=== PATIENT | female | born 1985 | race African-American/Black ===

== ENCOUNTER → 2020-09-14 13:39 | Outpatient (BNVA) | payer OTHER, SELFPAY | PROVIDERS: PCP Internal Medicine; Visit Provider Advanced Practice Midwife | DX: Z76.89 Persons encountering health services in other specified circumstances (principal) ==

== ENCOUNTER 2024-02-14 14:34 | Outpatient (REF) | payer OTHER, SELFPAY | END 2024-02-14 14:35 | disposition home or self-care (01) | LOC: HO.LAB 14:34 | PROVIDERS: Visit Provider Advanced Practice Midwife | DX: Z13.89 Encounter for screening for other disorder (principal) ==

== ENCOUNTER 2024-02-14 14:34 | Outpatient (AMB) | payer OTHER, SELFPAY ==
[2024-02-14 14:35] VITALS: BP 100/62; BMI 25.7
--- NOTE | 2024-02-14 14:35 | MHC.OFFVIS ---
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 She reminded this practitioner that I delivered her 1st child when she was 12 in 1998. She is doing well right now she feels healthy she is open to if it happens complicated OB history and that she had some pre term concerns with her 1st baby but delivered at term 2nd was fine and then she had a in 2007 that was a so the 0 ectopic and that needed emergent management at [facility] and she was transferred from [place] to [facility] for that. She subsequently has had some TAB but is open now. She is in good health she does feel she gets very heavy crampy periods that are mainly just clots and she would like to check out to see if she has fibroids she also just yesterday had a breast biopsy and a solid mass done on her right breast at [facility] breast [facility]. She is open to checking for infection while I do the pelvic exam she believes she had an abnormal Pap smear years ago as well she has not interested in STD testing with blood work as she just recently had a full battery of blood work with her primary care provider and has no concerns. Her periods while heavy and clotty are regular. PENDING SALE TO [facility] Medical History (Updated 02/14/24 @ 15:49 by Enriqueta Jordan CNM) Ectopic Migraine with aura Surgical History Status post embolization of uterine artery H/O breast biopsy Family History (Updated 02/14/24 @ 15:51 by Enriqueta Jordan CNM) Mother History of breast cancer, Onset Age: 50 Sister History of breast cancer, Onset Age: 30 Social History Alcohol intake: current Sexual orientation: Straight/Heterosexual Female Reproductive History Menstrual Age of Menarche: 9 Duration of menses: 3-5 days Date of last menstrual period: 01/22/24 control method: none Total pregnancies: 8 Full term: 2 History of abnormal pap smear: Yes (unsure date) Physical Exam Vital Signs: Last Vital Signs BP 100/62 02/14/24 14:35 BMI result Body Mass Index 25.7 Const General: healthy appearing, comfortable, no acute distress, well developed and alert Nutritional Appearance: average body habitus Orientation/consciousness: patient oriented x3 Limitations: no limitations HEENT Head: Yes normocephalic Neck Neck: Yes normal visual inspection Chest Other: She has two Steri-Strips marking where her breast biopsy was done yesterday at [facility] at 0700 Chest palpation & inspection: normal inspection of the chest Breast/axilla inspection: normal inspection of the breasts and normal inspection of the axillae Breast/axilla palpation: normal palpation of the breasts and normal palpation of the axillae Resp Effort & Inspection: normal respiratory effort GI Inspection: Yes normal to inspection, No Abdominal wall edema and No distended Palpation (GI): Soft to palpation and nontender Other: External exam within normal limits vagina pink and moist cervix multiparous pink smooth normal appearing normal nabothian cysts uterus is small retroverted mobile nontender adnexa nontender and her ovaries were actually easily palpable by her and I. Good tone with Kegel. General: Yes bladder normal to palpation External Female Exam: normal external appearance and normal appearance of the urethra Speculum Exam - Vagina: normal appearance of the vagina, normal palpation and normal vaginal discharge Speculum Exam - Cervix: normal appearance of the cervix, normal palpation and nontender Bimanual exam- vagina & uterus: normal bimanual exam, normal palpation, uterine size normal, bladder normal to palpation, consistency normal, normal palpation, uterine mobility normal, uterine shape normal, No Cervical tenderness present, non-tender and no cervical motion tenderness Bimanual Exam- Adnexa, other: normal adnexae, no masses, normal and No adnexal tenderness Neuro General: patient oriented x3 Assessment & Plan Assessment & Plan (1) Family history of breast cancer in first degree relative: Code(s): Z80.3 - Family history of malignant neoplasm of breast Category: Medical (2) Well woman exam with routine gynecological exam: Code(s): Z01.419 - Encounter for gynecological examination (general) (routine) without abnormal findings Category: Medical (3) Hx of ectopic : Comment: around 2007, was in her cervix, transferred and emergently managed at [facility]. Code(s): Z87.59 - Personal history of other complications of , childbirth and the puerperium Category: Medical (4) Hx of abnormal cervical Pap smear: Code(s): Z87.42 - Personal history of other diseases of the female genital tract Category: Medical (5) Pelvic pain: Code(s): R10.2 - Pelvic and perineal pain Category: Medical (6) Menorrhagia with regular cycle: Comment: Clotty menses Code(s): N92.0 - Excessive and frequent menstruation with regular cycle Category: Medical (7) Breast mass: Comment: Patient gets evaluations at [facility] and just had breast biopsy right breast 02/13/2024 awaiting results Code(s): N63.0 - Unspecified lump in unspecified breast Category: Medical Plan Reviewed her history in detail she reminded me that I delivered her 1st child and she was 12 at 1998. She was having some signs of pre term labor and she says we told her to be on bedrest at the time her 2nd was not complicated. Then in 2007 she had an ectopic that was in her cervix and we transferred her emergently to [facility] where she was managed with injection of what she remembers as phone into her fallopian tubes but it may have been the uterine artery embolization to manage that afterwards she got weekly shots of methotrexate for a while she would some T8 B's for subsequent but she welcome now if it happened she is also considering going back to school and she is considering studying nursing she travels a lot and is also considering options in that world. She has in a good stable relationship and would you good time her other children are grown in their 20s and she will so has a grandchild already she is healthy and taking care of herself and life is good Additionally she had a breast biopsy for small solid mass that was noted on exam and mammogram yesterday at [facility] she has expecting the results for that biopsy within a week. Because of her concerned that she might have fibroids because of her very clotty menses I am ordering a pelvic ultrasound to assess additionally she gets occasional uterine or pelvic cramping possibility of a UTI was explored and a clean-catch urine has been sent if it is contaminated I have asked her to explore things further with her primary care provider but otherwise we will wait the pelvic ultrasound to see if there and findings there as well. She has on the portal so she can get the results of the urine when it is ready as well. Orders: Orders CT NG by PCR Today Z11.3 - Encounter for screening for infections with a predominantly sexual mode of transmission Bacterial Vaginosis Panel Today N89.8 - Other specified noninflammatory disorders of vagina US pelvic and transvaginal Today N92.0 - Excessive and frequent menstruation with regular cycle, R10.2 - Pelvic and perineal pain, Z01.419 - Encounter for gynecological examination (general) (routine) without abnormal findings, Z80.3 - Family history of malignant neoplasm of breast, Z87.42 - Personal history of other diseases of the female genital tract, Z87.59 - Personal history of other complications of , childbirth and the puerperium Pap Smear Today Z01.419 - Encounter for gynecological examination (general) (routine) without abnormal findings Urine Culture Today R10.2 - Pelvic and perineal pain Coding Level of Care Code New Pt Prev Care 18-39yr([id number] Diagnoses Family history of breast cancer in first degree relative Z80.3 Well woman exam with routine gynecological exam Z01.419 Hx of ectopic Z87.59 Hx of abnormal cervical Pap smear Z87.42 Pelvic pain R10.2 Menorrhagia with regular cycle N92.0 Breast mass N63.0
== END 2024-02-14 15:37 | disposition home or self-care (01) ==
LOC: HO.HWSM 14:34
PROVIDERS: Visit Provider Advanced Practice Midwife
DX: Z01.419 Encounter for gynecological examination (general) (routine) without abnormal findings (principal); Z80.3 Family history of malignant neoplasm of breast; Z87.59 Personal history of other complications of pregnancy, childbirth and the puerperium; Z87.42 Personal history of other diseases of the female genital tract; R10.2 Pelvic and perineal pain; N92.0 Excessive and frequent menstruation with regular cycle; N63.0 Unspecified lump in unspecified breast
CPT/HCPCS: 99385

== ENCOUNTER 2024-02-14 15:30 | Outpatient (REF) | payer OTHER, SELFPAY ==
[2024-02-15 01:32] LABS: CT PCR NOT DETECTED (Not Detect.); NG PCR NOT DETECTED (Not Detect.)
[2024-02-15 11:45] LABS: Bacterial Vaginosis PCR POSITIVE (Negative); Candida Group PCR NOT DETECTED (Not Detect); Candida glab krusei PCR NOT DETECTED (Not Detect); Trichomonas vaginalis PCR NOT DETECTED (Not Detect)
[2024-02-19 07:23] LABS: HPV mRNA E6/E7 Not Detected (Not Detected)
== END 2024-02-14 15:31 | disposition home or self-care (01) ==
LOC: HO.LNP 15:30
PROVIDERS: Visit Provider Advanced Practice Midwife
DX: R10.2 Pelvic and perineal pain (principal); Z11.3 Encounter for screening for infections with a predominantly sexual mode of transmission; N89.8 Other specified noninflammatory disorders of vagina
CPT/HCPCS: 0352U; 87086; 87491; 87591; 87624; 88175

== ENCOUNTER 2024-02-25 13:25 | Outpatient (REF) | payer OTHER, SELFPAY ==
--- NOTE | ~2024-02-25 | US_ITS ---
EXAMINATION: US PELVIS CLINICAL INFORMATION: Pelvic and perineal pain, excessive and frequent menstruation with irregular cycles. Last menstrual period 02/21/2024. Embolization of uterine artery. A midline pelvic pain. COMPARISON: None available. TECHNIQUE: Ultrasound of the pelvis is performed using both transabdominal and transvaginal transducers along with Doppler. Transvaginal imaging is performed due to inadequate visualization transabdominally. FINDINGS: The uterus is retroflexed and measures 9.5 x 5.0 x 5.6 cm. Endometrial thickness is 4 mm. No free fluid. Nabothian cysts in the cervix. Right ovary measures 3.9 x 2.0 x 1.7 cm, volume 7.0 mL. Right ovary is grossly unremarkable, although visualization is somewhat limited due to bowel gas. Left ovary measures 3.9 x 2.1 x 2.7 cm, volume 11.6 mL. Multiple left ovarian follicles are likely physiologic cysts. There is no specific indication for additional imaging. Left ovarian 2.1 x 1.6 x 2.1 cm complex cyst with thick ruelas, multiple thin and thick septations and complex internal echoes. US/US pelvic and transvaginal IMPRESSION: 1. Endometrial thickness is 4 mm. 2. Left ovarian 2.1 cm complex cyst with thick ruelas, multiple thin and thick septations and complex internal echoes. Recommend follow up ultrasound in 6-8 weeks.
== END 2024-02-25 13:26 | disposition home or self-care (01) ==
LOC: HO.US 13:25
PROVIDERS: PCP Internal Medicine; Visit Provider Advanced Practice Midwife
DX: R10.2 Pelvic and perineal pain (principal); N92.0 Excessive and frequent menstruation with regular cycle; Z87.42 Personal history of other diseases of the female genital tract; Z87.59 Personal history of other complications of pregnancy, childbirth and the puerperium
CPT/HCPCS: 76830; 76856

== ENCOUNTER 2024-03-11 14:33 | Outpatient (REF) | payer OTHER, SELFPAY ==
[2024-03-12 07:12] LABS: CT PCR NOT DETECTED (Not Detect.); NG PCR NOT DETECTED (Not Detect.)
[2024-03-12 11:19] LABS: Bacterial Vaginosis PCR NEGATIVE (Negative); Candida Group PCR DETECTED (Not Detect); Candida glab krusei PCR NOT DETECTED (Not Detect); Trichomonas vaginalis PCR NOT DETECTED (Not Detect)
== END 2024-03-11 14:34 | disposition home or self-care (01) ==
LOC: HO.LNP 14:33
PROVIDERS: PCP Internal Medicine; Visit Provider Obstetrics & Gynecology
DX: N76.0 Acute vaginitis (principal)
CPT/HCPCS: 0352U; 87491; 87591

== ENCOUNTER 2024-03-11 14:34 | Outpatient (AMB) | payer OTHER, SELFPAY ==
[2024-03-11 14:34] VITALS: BMI 25.6
--- NOTE | 2024-03-11 14:34 | A.OFFVIS_ITS ---
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 Required: No Information Interpreted: non-clinical & clinical Digital Content Manager: Digital Content Manager Present (Rehana Gruber KELSEY) Accompanied by: Self / Same As Patient Allergies Sulfa (Sulfonamide Antibiotics) Allergy (Unknown, Verified 03/11/24 14:34) sister got Gwyn-Federico syndrome Is last menstrual period known: Yes Last menstrual period: 02/21/24 HPI Comments Details: Presenting complaining of vulvovaginal dryness and irritation, no associated vaginal discharge or foul odor [facility], [facility] Medical History Ectopic Migraine with aura Surgical History Status post embolization of uterine artery H/O breast biopsy Family History Mother History of breast cancer, Onset Age: 50 Sister History of breast cancer, Onset Age: 30 Social History Alcohol intake: current Sexual orientation: Straight/Heterosexual Female Reproductive History Menstrual Age of Menarche: 9 Date of last menstrual period: 02/21/24 Review of Systems Const All systems reviewed & are unremarkable except as noted in HPI and below Physical Exam Vital Signs: BMI result Body Mass Index 25.6 General: Yes no CVA tenderness External Female Exam: normal external appearance and normal appearance of the urethra Speculum Exam - Vagina: normal appearance of the vagina, normal palpation, no l esions and no masses Speculum Exam - Cervix: normal appearance of the cervix, normal palpation, no lesions, no masses and nontender Bimanual exam- vagina & uterus: normal bimanual exam, normal palpation, uterine size normal, normal palpation, uterine shape normal, No Cervical tenderness present and non-tender Bimanual Exam- Adnexa, other: normal adnexae Back/Spine/Pelvis Back: no CVA tenderness Assessment & Plan Assessment & Plan (1) Vulvovaginitis: Code(s): N76.0 - Acute vaginitis Category: Medical Plan: GC/CT, Bacterial Vaginosis panel taken, Terazol 0.8% q.h.s. for 3 days was sent to the patient's pharmacy. The patient was instructed to call if symptoms don't improve in 48 hours. Medications: New terconazole 0.8% 1 appful vaginal BEDTIME 3 days 20 grams 0RF Coding Level of Care Code Est Pt Level 3 (50305) Diagnoses Vulvovaginitis N76.0
== END 2024-03-11 14:51 | disposition home or self-care (01) ==
PROVIDERS: PCP Internal Medicine; Visit Provider Obstetrics & Gynecology
DX: N76.0 Acute vaginitis (principal)
CPT/HCPCS: 99213

== ENCOUNTER 2024-03-31 11:14 | Outpatient (AMB) | payer OTHER, SELFPAY ==
--- NOTE | 2024-03-31 11:14 | MHC.OFFVIS ---
Intake Visit Reasons: TV US follow up Allergies Sulfa (Sulfonamide Antibiotics) Allergy (Unknown, Verified 03/31/24 11:14) sister got Gwyn-Federico syndrome Medication List - Last Reconciled 03/31/24 by Enriqueta Jordan CNM fluconazole 150 mg PO ONCE 1 day Is last menstrual period known: Yes Last menstrual period: 03/22/24 HPI HPI TV US follow up: Details: This is a tele visit to review patient's ultrasound she has other concerns as well she has been trying to get for the last couple of years and is wondering presence of this ovarian cyst is preventing her. She is 38 years old she has a complicated OB history including an ectopic that was in her cervix years ago. She also was treated for bacterial vaginosis and then a month later had symptoms of yeast infection and was seen and evaluated and treated with terconazole and she still felt some symptoms of dryness and she was treated with Diflucan but she still does not feel like she is back to herself. Her last menstrual periods started on the 4th of this month so she is 9 days into her cycle and she just recently finished with her menses. She normally is not aware of when she is ovulating. [facility] Medical History Ectopic Migraine with aura Surgical History Status post embolization of uterine artery H/O breast biopsy Family History Mother History of breast cancer, Onset Age: 50 Sister History of breast cancer, Onset Age: 30 Social History Alcohol intake: current Sexual orientation: Straight/Heterosexual Female Reproductive History Menstrual Age of Menarche: 9 Duration of menses: 3-5 days Date of last menstrual period: 03/22/24 control method: none Total pregnancies: 8 Full term: 2 Date of last pap smear: 09/18/17 (neg.) Telehealth Telehealth Telehealth Platform: Telephone Location of provider rendering services: practice address Location of patient: address on file Patient Identification confirmed using: Name, : Yes Telehealth method: voice only Patient verbally consented to treatment: Yes Patient verbally consented to billing insurance company: Yes Patient informed of any privacy concerns related to visit: Yes Minutes spent on Phone/Video with Pt.: 14 (7 cr/14 speaking w pt/6 charting=27) Results Reviewed Results Reviewed: Patient: Kassandra Germain MR#: [id number] : 1985 Acct:[id number] Age/Sex: 38 / F ADM Date: 02/25/24 Loc: HO.US Attending Dr: Enriqueta Jordan CNM Ordering Physician: Enriqueta Jrodan CNM Date of Service: 02/25/24 Procedure(s): US pelvic and transvaginal Accession Number(s): [id number] cc: Enriqueta Jordan CNM; DONALD YING MD~ EXAMINATION: US PELVIS CLINICAL INFORMATION: Pelvic and perineal pain, excessive and frequent menstruation with irregular cycles. Last menstrual period 02/21/2024. Embolization of uterine artery. A midline pelvic pain. COMPARISON: None available. TECHNIQUE: Ultrasound of the pelvis is performed using both transabdominal and transvaginal transducers along with Doppler. Transvaginal imaging is performed due to inadequate visualization transabdominally. FINDINGS: The uterus is retroflexed and measures 9.5 x 5.0 x 5.6 cm. Endometrial thickness is 4 mm. No free fluid. Nabothian cysts in the cervix. Right ovary measures 3.9 x 2.0 x 1.7 cm, volume 7.0 mL. Right ovary is grossly unremarkable, although visualization is somewhat limited due to bowel gas. Left ovary measures 3.9 x 2.1 x 2.7 cm, volume 11.6 mL. Multiple left ovarian follicles are likely physiologic cysts. There is no specific indication for additional imaging. Left ovarian 2.1 x 1.6 x 2.1 cm complex cyst with thick ruelas, multiple thin and thick septations and complex internal echoes. US/US pelvic and transvaginal IMPRESSION: 1. Endometrial thickness is 4 mm. 2. Left ovarian 2.1 cm complex cyst with thick ruelas, multiple thin and thick septations and complex internal echoes. Recommend follow up ultrasound in 6-8 weeks. Dictated By: Francine Sahu MD Signed By: <Electronically signed by Francine Sahu MD in OV> 03/17/24 0514 Pap smear was done 02/14/2024 it was sent to [facility]. There is a copy but it is not in pathology, Pap is negative with negative HPV. See also test for bacterial vaginosis in January and Kaelyn in February patient treated for both. Assessment & Plan Assessment & Plan (1) Ovarian cyst, complex: Code(s): N83.299 - Other ovarian cyst, unspecified side Category: Medical (2) Hx of abnormal cervical Pap smear: Comment: 02/14/2024 Pap appears it maybe negative with negative HPV however 03/05 sections are still pending from [facility].; final result of 02/13 pap is neg w neg HPV. Code(s): Z87.42 - Personal history of other diseases of the female genital tract Category: Medical (3) Menorrhagia with regular cycle: Comment: Clotty menses Code(s): N92.0 - Excessive and frequent menstruation with regular cycle Category: Medical (4) Patient desires : Comment: Patient desires says she has been trying for the last 2 years. Recommend patient seek reproductive assistance at [facility] and bring any records of cycles and ovulation. Code(s): Z31.9 - Encounter for procreative management, unspecified Category: Medical Plan I reviewed her ultrasound with her and the plan for repeat ultrasound I can not say if this ovarian cyst would have any effect at all on her attempts to get we will follow the next ultrasound and see about the results and if there is anything concerning she would be referred. In terms of the bacterial vaginosis followed by yeast and her not feeling completely comfortable get I would recommend that she simply not use anything other than clear water for the moment and make sure she is not wearing any tight clothing and let her vagina and body get back to normal In terms of seeking since she is 38 years old and she says she has been trying for a couple of years and she has been involved this partner for about 4 5 years. I would recommend that she not waste anymore time and seek consultation at [facility] and bring with her her records of her menses and any evidence she has a of ovulation. She normally can not tell but I recommend that she go out now and get an ovulation predictor kit and start using it with this cycle as she should probably be had any ovulation any day now. We will see her after the next ultrasound to review the results. Coding Level of Care Code Tele Est Pt Level 3 (95861) Diagnoses Ovarian cyst, complex N83.299 Hx of abnormal cervical Pap smear Z87.42 Menorrhagia with regular cycle N92.0 Patient desires Z31.9 Time Spent (min) 27
== END 2024-03-31 12:45 | disposition home or self-care (01) ==
LOC: HO.HWSM 11:14
PROVIDERS: PCP Internal Medicine; Visit Provider Advanced Practice Midwife
DX: N83.299 Other ovarian cyst, unspecified side (principal); Z87.42 Personal history of other diseases of the female genital tract; N92.0 Excessive and frequent menstruation with regular cycle; Z31.9 Encounter for procreative management, unspecified
CPT/HCPCS: 99213

== ENCOUNTER → 2024-03-31 11:14 | Outpatient (BNVA) | payer OTHER, SELFPAY | PROVIDERS: PCP Internal Medicine; Visit Provider Advanced Practice Midwife ==

== ENCOUNTER 2024-05-11 13:03 | Outpatient (REF) | payer OTHER, SELFPAY ==
--- NOTE | ~2024-05-11 | US_ITS ---
EXAMINATION: US PELVIS CLINICAL INFORMATION: Ovarian cyst. Follow-up as recommended previously COMPARISON: Pelvic ultrasound 02/25/2024: Left ovarian 2.1 cm complex cyst with thick ruelas, multiple thin and thick septations and complex internal echoes. Recommend follow up ultrasound in 6-8 weeks. TECHNIQUE: Ultrasound of the pelvis is performed using both transabdominal and transvaginal transducers along with Doppler. Transvaginal imaging is performed due to inadequate visualization transabdominally. FINDINGS: Uterus: The uterus is retroverted and retroflexed measuring 9.2 x 3.4 x 5.0 cm. The double wall endometrial thickness is 11 mm. The uterus is smooth in contour and has normal myometrial echogenicity. No visible fibroid. Nabothian cysts are present in the cervix. Adnexa: Both ovaries are visualized. There is normal color flow to the adnexa. There is no ovarian torsion. There is no pelvic ascites or fluid collection. Right ovary measures 3.5 x 2.7 x 2.9 cm for a volume of 14.4 mL which include occludes multiple benign follicular cysts the largest measuring 2.0 cm Left ovary measures 2.3 x 1.9 x 2.7 cm for a volume of 8.9 mL which includes multiple benign follicular cysts the largest measuring 2 cm. The complex multiseptated left ovarian cyst seen at the time of the prior study is no longer present. US/US pelvic and transvaginal IMPRESSION: Normal-appearing uterus and ovaries. The complex left ovarian cyst has resolved. Electronically signed by: Gwyn Goemz MD 05/11/2024 03:39 PM EDT
== END 2024-05-11 13:04 | disposition home or self-care (01) ==
LOC: HO.US 13:03
PROVIDERS: PCP Internal Medicine; Visit Provider Advanced Practice Midwife
DX: N83.299 Other ovarian cyst, unspecified side (principal)
CPT/HCPCS: 76830; 76856

== ENCOUNTER 2024-06-10 13:04 | Outpatient (AMB) | payer OTHER, SELFPAY ==
--- NOTE | 2024-06-10 13:10 | MHC.OFFVIS ---
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 The 2nd ultrasound done May 11 showed that that cyst has completely resolved she has otherwise normal follicular cysts and normal changes in her ovaries. She is getting regular periods she is tracking her cycles she has been keeping records she is aware of ovulation and she is having sex at the right time she says she has been trying to get for about a year. She end this particular partner have not had children together in the past. Her health is good.. She is aware that sometimes when you stopped trying to get that is when it happens. FORMERLY [facility], [facility] Medical History Ectopic Migraine with aura Surgical History Status post embolization of uterine artery H/O breast biopsy Family History Mother History of breast cancer, Onset Age: 50 Sister History of breast cancer, Onset Age: 30 Social History Alcohol intake: current Sexual orientation: Straight/Heterosexual Female Reproductive History Menstrual Age of Menarche: 9 Duration of menses: 3-5 days Date of last menstrual period: 05/26/24 control method: none Total pregnancies: 8 Full term: 2 Results Reviewed Results Reviewed: Patient: Kassandra Germain MR#: [id number] : 1985 Acct:[id number] Age/Sex: 38 / F ADM Date: 02/25/24 Loc: HO. Attending Dr: Enriqueta Jordan CNM Ordering Physician: Enriqueta Jordan CNM Date of Service: 02/25/24 Procedure(s): US pelvic and transvaginal Accession Number(s): [id number] cc: Enriqueta Jordan CNM; DONALD YING MD~ EXAMINATION: US PELVIS CLINICAL INFORMATION: Pelvic and perineal pain, excessive and frequent menstruation with irregular cycles. Last menstrual period 02/21/2024. Embolization of uterine artery. A midline pelvic pain. COMPARISON: None available. TECHNIQUE: Ultrasound of the pelvis is performed using both transabdominal and transvaginal transducers along with Doppler. Transvaginal imaging is performed due to inadequate visualization transabdominally. FINDINGS: The uterus is retroflexed and measures 9.5 x 5.0 x 5.6 cm. Endometrial thickness is 4 mm. No free fluid. Nabothian cysts in the cervix. Right ovary measures 3.9 x 2.0 x 1.7 cm, volume 7.0 mL. Right ovary is grossly unremarkable, although visualization is somewhat limited due to bowel gas. Left ovary measures 3.9 x 2.1 x 2.7 cm, volume 11.6 mL. Multiple left ovarian follicles are likely physiologic cysts. There is no specific indication for additional imaging. Left ovarian 2.1 x 1.6 x 2.1 cm complex cyst with thick ruelas, multiple thin and thick septations and complex internal echoes. US/US pelvic and transvaginal IMPRESSION: 1. Endometrial thickness is 4 mm. 2. Left ovarian 2.1 cm complex cyst with thick ruelas, multiple thin and thick septations and complex internal echoes. Recommend follow up ultrasound in 6-8 weeks. Dictated By: Francine Sahu MD Signed By: <Electronically signed by Francine Sahu MD in OV> 03/17/24 0514 DD/ 1401 TD/TT: Site Coordinator: Patient: Kassandra Germain MR#: [id number] : 1985 Acct:[id number] Age/Sex: 38 / F ADM Date: 05/11/24 Loc: HO.US Attending Dr: Enriqueta Jordan CNM Ordering Physician: Enriqueta Jordan CNM Date of Service: 05/11/24 Procedure(s): US pelvic and transvaginal Accession Number(s): [id number] cc: Enriqueta Jordan CNM; DONALD YING MD~ EXAMINATION: US PELVIS CLINICAL INFORMATION: Ovarian cyst. Follow-up as recommended previously COMPARISON: Pelvic ultrasound 02/25/2024: Left ovarian 2.1 cm complex cyst with thick ruelas, multiple thin and thick septations and complex internal echoes. Recommend follow up ultrasound in 6-8 weeks. TECHNIQUE: Ultrasound of the pelvis is performed using both transabdominal and transvaginal transducers along with Doppler. Transvaginal imaging is performed due to inadequate visualization transabdominally. FINDINGS: Uterus: The uterus is retroverted and retroflexed measuring 9.2 x 3.4 x 5.0 cm. The double wall endometrial thickness is 11 mm. The uterus is smooth in contour and has normal myometrial echogenicity. No visible fibroid. Nabothian cysts are present in the cervix. Adnexa: Both ovaries are visualized. There is normal color flow to the adnexa. There is no ovarian torsion. There is no pelvic ascites or fluid collection. Right ovary measures 3.5 x 2.7 x 2.9 cm for a volume of 14.4 mL which include occludes multiple benign follicular cysts the largest measuring 2.0 cm Left ovary measures 2.3 x 1.9 x 2.7 cm for a volume of 8.9 mL which includes multiple benign follicular cysts the largest measuring 2 cm. The complex multiseptated left ovarian cyst seen at the time of the prior study is no longer present. US/US pelvic and transvaginal IMPRESSION: Normal-appearing uterus and ovaries. The complex left ovarian cyst has resolved. Electronically signed by: Gwyn Gomez MD 05/11/2024 03:39 PM EDT RP Dictated By: Gwyn Gomez MD Signed By: <Electronically signed by Gwyn Gomez MD in OV> 05/11/24 1539 DD/ 1320 TD/TT: 05/11/24 1345 Site Coordinator: SS 02/14/2024 Pap was negative with negative HPV, done via the [facility] the results are scanned into the system and not copy able. Assessment & Plan Assessment & Plan (1) Ovarian cyst, complex: Comment: Resolved as per May 11 ultrasound Code(s): N83.299 - Other ovarian cyst, unspecified side Category: Medical (2) Patient desires : Comment: Patient desires says she has been trying for the last 2 years. Recommend patient seek reproductive assistance at [facility] and bring any records of cycles and ovulation. Code(s): Z31.9 - Encounter for procreative management, unspecified Category: Medical Plan I reviewed both ultrasounds again with her and also her Pap smear results. All appears normal. Reviewed her regular cycles her efforts to get her desire for . I recommend that she not waste anymore time and seek reproductive infertility services at [facility] I helped her search a phone looking up both the [facility] site which has had some sort of merger with [facility] and [facility] is currently the site that she would call to seek reproductive services in [place]. Discussed that expense maybe an issue. I would recommend the sooner better because eggs do get older. Discussed also that given that she is 38 years old now there will be recommendations that need to be discussed in a for increased monitoring of the and possible induction of labor at 39 weeks etc.. Discussed that these are all things that she would discussed from the beginning and not just by transferring at the end and I would recommend that she seek all care at [facility] in practice from the get go. Wherever she lands up for services she would sign consent to have records sent from here as need be of the ultrasound and Pap smear. Reviewed all as signs and symptoms of fertility that she experiences midcycle and that she is in fact acting on them at the time. Coding Level of Care Code Est Pt Level 3 (96451) Diagnoses Ovarian cyst, complex N83.299 Patient desires Z31.9
[2024-06-10 13:12] VITALS: BP 110/62
== END 2024-06-10 13:40 | disposition home or self-care (01) ==
PROVIDERS: PCP Internal Medicine; Visit Provider Advanced Practice Midwife
DX: N83.299 Other ovarian cyst, unspecified side (principal); Z31.9 Encounter for procreative management, unspecified
CPT/HCPCS: 99213

== ENCOUNTER → 2024-06-10 13:04 | Outpatient (BNVA) | payer OTHER, SELFPAY | PROVIDERS: PCP Internal Medicine; Visit Provider Advanced Practice Midwife ==